=== PATIENT | male | born 1960 | race African-American/Black ===

== ENCOUNTER 2016-05-30 14:45 | Outpatient (RCR) | payer BC ==
[~2016-05-30 14:45] MED LIST: ASPIRIN 32325 MG/TAB PO; DIABETA 5MG5 MG/TAB PO; LEVEMIR100 U/ML SQ; LIPITOR 40MG TA40 MG PO; MOBIC15 MG PO; NEURONTIN300 MG/CAP PO; NORCO 325 MG-7.1 TAB PO; NOVOLOG 100U100 U/M1 SQ; ULTRAM 50MG TAB50 MG PO; ZOCOR 40MG40 MG PO
== END 2016-06-21 09:37 | disposition still patient (30) ==
LOC: WSPT 14:45
DX: Z47.89 Encounter for other orthopedic aftercare (principal); R26.81 Unsteadiness on feet; M25.862 Other specified joint disorders, left knee; M25.861 Other specified joint disorders, right knee

== ENCOUNTER → 2016-09-05 | Outpatient (CLI) | payer BC | LOC: COL.RAD 10:13 | DX: M89.8X2 Other specified disorders of bone, upper arm (principal) ==

== ENCOUNTER → 2018-09-26 | Outpatient (CLI) | payer BC ==
[~2018-09-26] MED LIST changes: +HUMALOG100 U/ML SQ; +JANUMET 1000 MG1 TA1 PO; +PRINIVIL20 MG PO
== END ==
LOC: COL.RAD 15:16
DX: M79.89 Other specified soft tissue disorders (principal)

== ENCOUNTER 2018-12-12 08:41 | Emergency (ER) | payer BC ==
[~2018-12-12] VITALS: Ht 185.4 cm; Wt 154.5 kg
[2018-12-12 08:46] VITALS: TEMP 97.3
[2018-12-12 09:21] LABS: BASO # 0.1 (0.0-0.2); BASO % 0.6 % (0.0-2.0); EOS # 0.3 (0.0-0.7); EOS % 3.3 % (0-4.0); GRAN # 4.4 (1.4-6.5); GRAN % 56.8 % (42.2-75.2); HEMATOCRIT 43.6 % (42.0-52.0); HEMOGLOBIN 14.3 g/dl (13.5-18.0); LYMPH # 2.1 (1.2-3.4); LYMPH % 26.7 % (20.0-51.0); MEAN CELL VOLUME 79 fl (80.0-100.0); MEAN CORPUSCULAR HEMOGLOBIN 26 pg (27.0-31.0); MEAN CORPUSCULAR HGB CONC 33 g/dl (33.0-37.0); MEAN PLATELET VOLUME 10.6 fl (7.4-10.4); MONO # 0.9 (0.1-0.6); PLATELET COUNT 289 K/mm3 (130-400); RED BLOOD COUNT 5.49 M/mm3 (4.20-5.60); REDCELL DISTRIBUTION WIDTH-CV 15.3 % (11.5-14.5)
[2018-12-12 09:32] LABS: ALANINE AMINOTRANSFERASE 30 U/L (21-72); ALBUMIN 4.1 gm/dL (3.5-5.0); ALKALINE PHOSPHATASE 192 U/L (50-136); ANION GAP 13 mmol/L (7-16); AST,SGOT 47 U/L (15-37); BILIRUBIN,TOTAL 0.5 mg/dL (0.0-1.0); BLOOD UREA NITROGEN 20 mg/dL (9-20); CALCIUM 9.3 mg/dL (8.4-10.2); CARBON DIOXIDE 24 mmol/L (22-30); CHLORIDE 103 mmol/L (98-107); CREATININE, serum 1.98 (0.66-1.25); GLUCOSE 160 mg/dL (74-106); POTASSIUM 4.7 mmol/L (3.4-5.0); SODIUM 140 mmol/L (137-145); TOTAL PROTEIN 8.7 gm/dL (6.4-8.2)
[2018-12-12 09:59] LABS: TROPONIN-I < 0.012 ng/mL (0.000-0.035)
[2018-12-12 13:34] LABS: COLLECTION METHOD CLEAN CATCH
[2018-12-12 13:44] LABS: MUCOUS Present /lpf; PH 5 (5-8); SQUAMOUS EPITHELIAL 0-2 /hpf; URINE APPEARANCE Hazy; URINE BACTERIA None Seen /hpf; URINE BILIRUBIN Negative (NEGATIVE); URINE BLOOD Negative (NEGATIVE); URINE COLOR Yellow; URINE GLUCOSE Negative (NEGATIVE); URINE KETONE Negative (NEGATIVE); URINE LEUKOCYTE ESTERASE Negative (NEGATIVE); URINE NITRATE Negative (NEGATIVE); URINE PROTEIN(semi-quant) Negative (NEGATIVE); URINE RBC None Seen /hpf
[2018-12-12] MEDS ORDERED: NORCO 325 MG-51 TAB PO (14:11)
[2018-12-12 14:31] VITALS: BP 125/67; PULSE 78
== END 2018-12-12 14:46 | disposition home or self-care (01) ==
LOC: COL.ER 08:41
PROVIDERS: Emergency Medicine
DX: R07.9 Chest pain, unspecified (principal); M54.5 Low back pain; R53.81 Other malaise; I10 Essential (primary) hypertension; E78.5 Hyperlipidemia, unspecified; E11.51 Type 2 diabetes mellitus with diabetic peripheral angiopathy without gangrene; Z79.82 Long term (current) use of aspirin; Z79.4 Long term (current) use of insulin; Z86.73 Personal history of transient ischemic attack (TIA), and cerebral infarction without residual deficits
CPT/HCPCS: J7030

== ENCOUNTER 2019-05-17 16:34 | Emergency (ER) | payer BC ==
[~2019-05-17] VITALS: Ht 185.4 cm; Wt 154.5 kg
[~2019-05-17 16:34] MED LIST changes: +NORCO 325 MG-51 TAB PO
[2019-05-17 16:52] VITALS: TEMP 99
[2019-05-17 17:48] LABS: BASO % 0.5 % (0.0-2.0); EOS # 0.2 (0.0-0.7); EOS % 2.5 % (0-4.0); GRAN # 5.6 (1.4-6.5); GRAN % 72.8 % (42.2-75.2); HEMOGLOBIN 12.8 g/dl (13.5-18.0); LYMPH # 1.4 (1.2-3.4); LYMPH % 17.9 % (20.0-51.0); MEAN CELL VOLUME 81 fl (80.0-100.0); MEAN CORPUSCULAR HEMOGLOBIN 27 pg (27.0-31.0); MEAN CORPUSCULAR HGB CONC 33 g/dl (33.0-37.0); MEAN PLATELET VOLUME 10.2 fl (7.4-10.4); MONO # 0.5 (0.1-0.6); MONO % 5.8 % (1.7-9.3); PLATELET COUNT 258 K/mm3 (130-400); RED BLOOD COUNT 4.83 M/mm3 (4.20-5.60); REDCELL DISTRIBUTION WIDTH-CV 14.5 % (11.5-14.5)
[2019-05-17 19:35] VITALS: BP 139/89; PULSE 77
== END 2019-05-17 19:35 | disposition home or self-care (01) ==
LOC: COL.ER 16:34
PROVIDERS: Family Medicine
DX: I82.4Z1 Acute embolism and thrombosis of unspecified deep veins of right distal lower extremity (principal); E11.9 Type 2 diabetes mellitus without complications; I10 Essential (primary) hypertension; Z79.82 Long term (current) use of aspirin; Z79.4 Long term (current) use of insulin
CPT/HCPCS: J1650

== ENCOUNTER → 2019-05-19 | Outpatient (CLI) | payer BC | LOC: COL.VAS 08:15 | DX: M79.89 Other specified soft tissue disorders (principal) ==

== ENCOUNTER 2022-04-08 08:36 | Observation (INO) | payer OTHER ==
[~2022-04-08] VITALS: Ht 180.3 cm; Wt 143.1 kg
[2022-04-08 09:04] LABS: BASO % 0.5 % (0.0-2.0); EOS # 0.2 K/mm3 (0.0-0.7); EOS % 2.9 % (0.0-4.0); GRAN # 3.9 K/mm3 (1.4-6.5); GRAN % 59.5 % (42.2-75.2); HEMATOCRIT 41.3 % (42.0-52.0); HEMOGLOBIN 13.5 g/dl (13.5-18.0); LYMPH # 1.7 K/mm3 (1.2-3.4); LYMPH % 26.6 % (20.0-51.0); MEAN CELL VOLUME 81 fl (80.0-100.0); MEAN CORPUSCULAR HEMOGLOBIN 27 pg (27-31); MEAN CORPUSCULAR HGB CONC 33 g/dl (33.0-37.0); MEAN PLATELET VOLUME 9.9 fl (7.4-10.4); MONO # 0.7 K/mm3 (0.1-0.6); MONO % 10.2 % (1.7-9.3); PLATELET COUNT 243 K/mm3 (130-400); REDCELL DISTRIBUTION WIDTH-CV 14.1 % (11.5-14.5)
[2022-04-08 09:07] LABS: INR 1.3 (0.8-3.0); PROTHROMBIN TIME 14.9 SECONDS (9.7-12.8)
[2022-04-08 09:09] LABS: PARTIAL THROMBOPLASTIN TIME 32.9 SECONDS (26.0-37.0)
[2022-04-08 09:16] LABS: ALANINE AMINOTRANSFERASE 46 U/L (0-55); ALBUMIN 3.7 gm/dL (3.4-4.8); ALKALINE PHOSPHATASE 166 U/L (40-150); ANION GAP 9 mmol/L (7-16); AST,SGOT 53 U/L (5-34); BILIRUBIN,TOTAL 0.6 mg/dL (0.2-1.2); BLOOD UREA NITROGEN 18 mg/dL (8-26); CARBON DIOXIDE 22 mmol/L (23-31); CHLORIDE 110 mmol/L (98-107); CREATININE, serum 1.23 mg/dL (0.72-1.25); GLUCOSE 73 mg/dL (70-99); POTASSIUM 4.8 mmol/L (3.5-4.5); SODIUM 141 mmol/L (136-145); TOTAL PROTEIN 8.1 gm/dL (6.2-8.1)
[2022-04-08 09:22] LABS: TROPONIN-I < 0.010 ng/mL (0.00-0.033)
[2022-04-08] MEDS ORDERED: OZEMPIC1 MG/0.71 SQ (12:58)
[2022-04-08 14:06] VITALS: BP 134/73; PULSE 68; TEMP 97.8
--- NOTE | 2022-04-08 14:32 | NUR ---
PATIENT ARRIVED TO THE FLOOR AT 1400. NO COMPLAINTS OF PAIN. PRESENTS SWELLING ON THE RIGHT SIDE OF THE FACE AND THE RIGHT ARM. PATIENT STATES THAT HIS MOUTH DOES NOT HURT. VSS. INT TO THE RIGHT WRIST. FLUSHES WELL.
[2022-04-08 14:38] VITALS: BP 134/73
--- NOTE | 2022-04-08 16:49 | NUR ---
PATIENT BLOOD SUGAR READ 64 ON GLUCOMETER. ADMINISTERED HYPOGLYCEMIC PROTOCOL ORDERS PER DR. JENKINS. WILL RE-CHECK BLOOD SUGAR IN 15 MINUTES. PATIENT IS ASYMPTOMATIC.
--- NOTE | 2022-04-08 17:07 | NUR ---
RECHECKED PATIENT BLOOD SUGAR. CAME BACK UP TO 80. PATIENT IS FEELING GOOD AND DOES NOT COMPLAIN OF ANY ABNORMAL SYMPTOMS
--- NOTE | 2022-04-08 17:10 | NUR ---
PATIENT IS NOT COMPLAINING OF PAIN THIS SHIFT. DOES NOT WANT A MEAL. STATES THAT HE IS NOT HUNGRY, BUT KNOWS HOW TO CALL DOWN TO ORDER A TRAY. BLOOD SUGAR DID DROP TO 64, BUT NURSING BROUGHT IT BACK TO [address] JENKINS ASSESSED THE PATIENTS RIGHT FACIAL SWELLING, AND THINKS IT MAY BE DUE TO ANGIOEDEMA. WANTS TO HOLD THE LISINPRIL. PATIENT CAN GET UP AND WALK TO THE RESTROOM WITH SUPERVISION. VSS. NO ACUTE CHANGES.
[2022-04-08 18:33] VITALS: BP 134/75; PULSE 67; TEMP 97.6
[2022-04-08 19:48] VITALS: BP 151/89; PULSE 72; TEMP 97.9
--- NOTE | 2022-04-08 20:00 | NUR ---
Pt in bed. Shift assessment completed. A&O x4. Neurological assessment WNL. All medication administered per emar. Pt doens't report any pain at this moment. States that: "the only issue is my face, the swelling". His only concern at this moment is not wanting to receive Lisinopril. No insulin was administrated. Call light is within reach.
[2022-04-08 23:46] VITALS: BP 121/72; PULSE 85; TEMP 98.1
[2022-04-09 03:33] VITALS: BP 139/85; PULSE 73; TEMP 97.9
[2022-04-09 06:50] LABS: GRAN # 4.1 K/mm3 (1.4-6.5); HEMATOCRIT 40.5 % (42.0-52.0); HEMOGLOBIN 13.8 g/dl (13.5-18.0); LYMPH # 0.7 K/mm3 (1.2-3.4); LYMPH % 13.2 % (20.0-51.0); MEAN CELL VOLUME 79 fl (80.0-100.0); MEAN CORPUSCULAR HEMOGLOBIN 27 pg (27-31); MEAN CORPUSCULAR HGB CONC 34 g/dl (33.0-37.0); MEAN PLATELET VOLUME 10.5 fl (7.4-10.4); MONO # 0.1 K/mm3 (0.1-0.6); MONO % 2.6 % (1.7-9.3); PLATELET COUNT 241 K/mm3 (130-400); RED BLOOD COUNT 5.15 M/mm3 (4.20-5.60); REDCELL DISTRIBUTION WIDTH-CV 13.6 % (11.5-14.5)
[2022-04-09 07:06] LABS: CALCIUM 9.3 mg/dL (8.4-10.2); CREATININE, serum 1.07 mg/dL (0.72-1.25); POTASSIUM 4.7 mmol/L (3.5-4.5)
[2022-04-09] MEDS ORDERED: ASPIRIN E.C. 8181 MG PO (07:06)
--- NOTE | 2022-04-09 07:08 | NUR ---
Pt had a good night. He was able to rest. Neurological assessments WNL. Swelling on his face is decreasing. Pt states feeling the swelling coming down although he can't speak very clearly yet. He also expressed that the Hospital reminds him of his , who , and brought back some memories. He didn't expressed any other needs or concerns. Call light is [employer] reach.
[2022-04-09 07:14] VITALS: BP 147/86; PULSE 76; TEMP 98.3
--- NOTE | 2022-04-09 08:03 | NUR ---
PATIENT ASPIRIN DROPPED ON FLOOR BEFORE PATIENT TOOK MEDICATION. REMOVED SECOND ASPIRIN FROM [facility]. NO ISSUES
[2022-04-09] MEDS ORDERED: NORVASC2.5 MG PO (08:14)
[2022-04-09] MEDS ORDERED: PREDNISONE20 MG PO (08:14)
--- NOTE | 2022-04-09 09:22 | NUR ---
Initial visit; Patient thanked [facility] [employer] for looking in on him and offering prayer and God's blessings.
--- NOTE | 2022-04-09 12:00 | NUR ---
PATIENT RECIEVED DISCHARGE INSTRUCTIONS WHICH INCLUDED FOLLOW UP APPOINTMETNS AND MEDICATIONS CHANGES. PATIENT UNDERSTANDS. DEPARTED WITH CANE TO CAR PARKED OUTSIDE OF THE ER WITH STAFF MEMBER
== END 2022-04-09 19:10 ==
LOC: COL.ER 08:36 → MEDICAL 10:11
PROVIDERS: Emergency Medicine; ADMIT Student in an Organized Health Care Education/Training Program
DX: I67.2 Cerebral atherosclerosis (principal); E11.649 Type 2 diabetes mellitus with hypoglycemia without coma; T78.3XXA Angioneurotic edema, initial encounter; R20.0 Anesthesia of skin; I10 Essential (primary) hypertension; Z79.899 Other long term (current) drug therapy; Z86.73 Personal history of transient ischemic attack (TIA), and cerebral infarction without residual deficits; Z79.4 Long term (current) use of insulin; Z87.891 Personal history of nicotine dependence
CPT/HCPCS: G0378; J1200; J2920; J7512; Q9967

== ENCOUNTER 2022-04-14 02:04 | Emergency (ER) | payer OTHER ==
[~2022-04-14] VITALS: Ht 185.4 cm; Wt 142.7 kg
[~2022-04-14 02:04] MED LIST changes: +ASPIRIN E.C. 8181 MG PO; +NORVASC2.5 MG PO; +OZEMPIC1 MG/0.71 SQ; +PREDNISONE20 MG PO
[2022-04-14 02:52] LABS: BASO % 0.4 % (0.0-2.0); EOS # 0.3 K/mm3 (0.0-0.7); EOS % 4.7 % (0.0-4.0); GRAN % 57.3 % (42.2-75.2); HEMATOCRIT 40.5 % (42.0-52.0); HEMOGLOBIN 13.7 g/dl (13.5-18.0); LYMPH % 28.1 % (20.0-51.0); MEAN CELL VOLUME 79 fl (80.0-100.0); MEAN CORPUSCULAR HEMOGLOBIN 27 pg (27-31); MEAN CORPUSCULAR HGB CONC 34 g/dl (33.0-37.0); MEAN PLATELET VOLUME 10.3 fl (7.4-10.4); MONO # 0.6 K/mm3 (0.1-0.6); MONO % 9.2 % (1.7-9.3); PLATELET COUNT 237 K/mm3 (130-400); RED BLOOD COUNT 5.14 M/mm3 (4.20-5.60); REDCELL DISTRIBUTION WIDTH-CV 13.8 % (11.5-14.5)
[2022-04-14 03:24] LABS: ALBUMIN 3.6 gm/dL (3.4-4.8); BILIRUBIN,TOTAL 0.7 mg/dL (0.2-1.2); C-REACTIVE PROTEIN 0.23 mg/dL (0.00-0.50); CREATININE, serum 1.12 mg/dL (0.72-1.25); TOTAL PROTEIN 8.2 gm/dL (6.2-8.1)
[2022-04-14 04:06] LABS: COLLECTION METHOD CLEAN CATCH
[2022-04-14 04:16] LABS: PH 5.5 (5.0-8.5); SQUAMOUS EPITHELIAL None Seen /hpf (0-10); URINE APPEARANCE Clear (CLEAR/HAZY); URINE BACTERIA None Seen /hpf (NONE SEEN); URINE BLOOD Negative (NEGATIVE); URINE COLOR Yellow (YELLOW); URINE GLUCOSE Negative (NEGATIVE); URINE KETONE Negative (NEGATIVE); URINE NITRATE Negative (NEGATIVE); URINE PROTEIN(semi-quant) Negative (NEGATIVE)
[2022-04-14] MEDS ORDERED: PEPCID 20MG TAB20 MG PO (04:22)
[2022-04-14 04:37] VITALS: BP 135/91; PULSE 84; TEMP 98.6
== END 2022-04-14 04:37 | disposition home or self-care (01) ==
LOC: COL.ER 02:04
PROVIDERS: Family Medicine
DX: R11.10 Vomiting, unspecified (principal); L29.9 Pruritus, unspecified
CPT/HCPCS: J1200; J2405; J7120

== ENCOUNTER → 2023-07-15 | Outpatient (REF) | payer OTHER ==
[~2023-07-15] MED LIST changes: +PEPCID 20MG TAB20 MG PO
[2023-07-15 15:38] LABS: SYNOVIAL FL. MONONUCLEAR 72.3 % (0-75); SYNOVIAL FLUID RBC 81000 /mm3 (0-0); SYNOVIAL FLUID WBC 397 /mm3 (200-600)
[2023-07-15 15:39] LABS: SYNOVIAL FLUID APPEARANCE TURBID; SYNOVIAL FLUID COLOR RED
== END ==
LOC: ZCOL.LAB 15:16
PROVIDERS: Orthopaedic Surgery
DX: Z11.9 Encounter for screening for infectious and parasitic diseases, unspecified (principal)